=== PATIENT | female | born 1950 | race Caucasian/White ===

== ENCOUNTER 2017-05-31 11:04 | Outpatient (CLI) | payer OTHER ==
[~2017-05-31 11:04] MED LIST: COREG CR20 MG PO; [UNRECOGNIZED DRUG - OTHER] PO
== END 2017-05-31 11:06 | disposition home or self-care (01) ==
LOC: NUCLEAR 11:04
DX: E21.5 Disorder of parathyroid gland, unspecified (principal)
CPT/HCPCS: 78070; A9500

== ENCOUNTER 2017-06-06 09:20 | Outpatient (CLI) | payer OTHER ==
[2017-06-18] MEDS ORDERED: CARAFATE1 GM PO (13:00)
[2017-06-18] MEDS ORDERED: LISINOPRIL5 MG PO (13:00)
[2017-06-18] MEDS ORDERED: PROTONIX20 MG PO (13:00)
[2017-06-18] MEDS ORDERED: ZANTAC300 MG PO (13:01)
== END 2017-06-06 09:26 | disposition home or self-care (01) ==
LOC: MAMO-SONO 09:20 → SONOGRAMA 09:20
DX: D35.1 Benign neoplasm of parathyroid gland (principal)

== ENCOUNTER 2017-06-21 06:00 | Day surgery (SDC) | payer OTHER ==
[~2017-06-21] VITALS: Ht 154.9 cm; Wt 67.1 kg
[~2017-06-21 06:00] MED LIST changes: +CARAFATE1 GM PO; +LISINOPRIL5 MG PO; +PROTONIX20 MG PO; +ZANTAC300 MG PO
== END 2017-06-22 06:46 | disposition home or self-care (01) ==
LOC: CIR.AMB 06:00 → SURG 07:00 → EDSTATUS 09:30 → SURG 09:30 → RECOVERY 09:30 → SURH 10:37 → O/R 10:37 → CIR.AMB 06-22 06:46 → O/R 06-22 13:52 → SURH 06-22 13:52
DX: D35.1 Benign neoplasm of parathyroid gland (principal)

== ENCOUNTER 2017-06-27 06:58 | Outpatient (CLI) | payer OTHER | END 2017-06-27 07:17 | disposition home or self-care (01) | LOC: LAB 06:58 | DX: D35.1 Benign neoplasm of parathyroid gland (principal) ==

== ENCOUNTER 2017-07-25 10:28 | Outpatient (CLI) | payer OTHER | END 2017-07-25 17:00 | disposition home or self-care (01) | LOC: SONOGRAMA 10:28 | DX: R10.9 Unspecified abdominal pain (principal) ==

== ENCOUNTER 2017-08-02 08:46 | Outpatient (CLI) | payer OTHER | END 2017-08-02 09:08 | disposition home or self-care (01) | LOC: RAD 501 08:46 | DX: R10.84 Generalized abdominal pain (principal) ==

== ENCOUNTER 2018-01-14 08:39 | Outpatient (CLI) | payer OTHER ==
[~2018-01-14] VITALS: Ht 154.9 cm; Wt 69.4 kg
== END 2018-01-14 09:00 | disposition home or self-care (01) ==
LOC: OFIC 805 08:39
DX: J32.8 Other chronic sinusitis (principal); J30.89 Other allergic rhinitis; H93.11 Tinnitus, right ear; R42 Dizziness and giddiness

== ENCOUNTER 2018-01-14 10:28 | Outpatient (CLI) | payer OTHER | END 2018-01-14 10:39 | disposition home or self-care (01) | LOC: TOM 10:28 | DX: J32.8 Other chronic sinusitis (principal) ==

== ENCOUNTER 2018-11-28 10:31 | Outpatient (CLI) | payer OTHER | END 2018-11-28 10:38 | disposition home or self-care (01) | LOC: RAD 10:31 | DX: M54.2 Cervicalgia (principal) ==

== ENCOUNTER 2019-02-07 07:34 | Outpatient (CLI) | payer OTHER | END 2019-02-07 07:54 | disposition home or self-care (01) | LOC: TOM 07:34 | DX: M54.11 Radiculopathy, occipito-atlanto-axial region (principal); N63.11 Unspecified lump in the right breast, upper outer quadrant; M50.00 Cervical disc disorder with myelopathy, unspecified cervical region; Z12.31 Encounter for screening mammogram for malignant neoplasm of breast ==

== ENCOUNTER → 2019-02-11 | Outpatient (CLI) | payer OTHER | END | disposition home or self-care (01) | LOC: NUCLEAR 10:11 | DX: M81.0 Age-related osteoporosis without current pathological fracture (principal) ==

== ENCOUNTER 2019-05-09 06:40 | Outpatient (CLI) | payer OTHER | END 2019-05-09 06:49 | disposition home or self-care (01) | LOC: LAB 06:40 | DX: E78.2 Mixed hyperlipidemia (principal); D68.8 Other specified coagulation defects; I10 Essential (primary) hypertension; Z01.810 Encounter for preprocedural cardiovascular examination; Z01.811 Encounter for preprocedural respiratory examination ==

== ENCOUNTER 2019-08-25 07:17 | Outpatient (CLI) | payer OTHER | END 2019-08-25 07:39 | disposition home or self-care (01) | LOC: TOM 07:17 | DX: K57.30 Diverticulosis of large intestine without perforation or abscess without bleeding (principal); K21.9 Gastro-esophageal reflux disease without esophagitis; K59.09 Other constipation ==

== ENCOUNTER → 2019-09-10 06:20 | Outpatient (CLI) | payer OTHER | END | disposition home or self-care (01) | LOC: LAB 06:20 | DX: E11.9 Type 2 diabetes mellitus without complications (principal); E78.00 Pure hypercholesterolemia, unspecified ==

== ENCOUNTER → 2019-09-24 06:24 | Outpatient (CLI) | payer OTHER | END | disposition home or self-care (01) | LOC: LAB 06:24 | PROVIDERS: ATTEND Internal Medicine Cardiovascular Disease | DX: I10 Essential (primary) hypertension (principal); E11.9 Type 2 diabetes mellitus without complications; E03.8 Other specified hypothyroidism; E78.2 Mixed hyperlipidemia; Z12.11 Encounter for screening for malignant neoplasm of colon ==

== ENCOUNTER 2019-12-24 07:08 | Outpatient (CLI) | payer OTHER | END 2019-12-24 07:14 | disposition home or self-care (01) | LOC: RAD 07:08 | DX: M16.0 Bilateral primary osteoarthritis of hip (principal) ==

== ENCOUNTER 2020-03-16 08:21 | Outpatient (CLI) | payer OTHER | END 2020-03-16 08:33 | disposition home or self-care (01) | LOC: RAD 08:21 → MAMO-SONO 09:45 | PROVIDERS: ATTEND Obstetrics & Gynecology | DX: M43.12 Spondylolisthesis, cervical region (principal); M43.8X7 Other specified deforming dorsopathies, lumbosacral region; M54.12 Radiculopathy, cervical region; Z12.31 Encounter for screening mammogram for malignant neoplasm of breast; N64.59 Other signs and symptoms in breast; N64.4 Mastodynia; M54.2 Cervicalgia; M54.5 Low back pain ==

== ENCOUNTER 2020-08-04 11:58 | Emergency (ER) | payer OTHER ==
[~2020-08-04] VITALS: Ht 154.9 cm; Wt 73.0 kg
[2020-08-04] MEDS ORDERED: DAFLONEX-XL 11300 MG (12:16)
[2020-08-04] MEDS ORDERED: LIPITOR20 MG (12:16)
[2020-08-04] MEDS ORDERED: FUROSEMIDE20 MG (12:16)
[2020-08-04] MEDS ORDERED: CARVEDILOL12.5 MG (12:17)
[2020-08-04] MEDS ORDERED: ADULT LOW DOSE81 M1 (12:17)
[2020-08-04] MEDS ORDERED: CARAFATE1 GM (12:17)
[2020-08-04] MEDS ORDERED: PROTONIX20 MG (12:18)
[2020-08-04] MEDS ORDERED: ALENDRONATE SOD70 MG (12:18)
[2020-08-04] MEDS ORDERED: ZESTRIL2.5 MG (12:20)
[2020-08-04] MEDS ORDERED: KETO10TA2 PO (17:49)
[2020-08-04] MEDS ORDERED: ORPHENADRINE C100 MG PO (17:49)
[2020-08-04] MEDS ORDERED: MEDROLPACK PO (17:49)
== END 2020-08-04 18:14 | disposition home or self-care (01) ==
LOC: ER 11:58
DX: M51.37 Other intervertebral disc degeneration, lumbosacral region (principal); I87.2 Venous insufficiency (chronic) (peripheral); M54.5 Low back pain; M79.604 Pain in right leg

== ENCOUNTER 2020-08-13 12:21 | Outpatient (CLI) | payer OTHER ==
[~2020-08-13 12:21] MED LIST changes: +ADULT LOW DOSE81 M1; +ALENDRONATE SOD70 MG; +CARAFATE1 GM; +CARVEDILOL12.5 MG; +DAFLONEX-XL 11300 MG; +FUROSEMIDE20 MG; +KETO10TA2 PO; +LIPITOR20 MG; +MEDROLPACK PO; +ORPHENADRINE C100 MG PO; +PROTONIX20 MG; +ZESTRIL2.5 MG
== END 2020-08-13 14:22 | disposition home or self-care (01) ==
LOC: MRI 12:21
PROVIDERS: ATTEND Internal Medicine Cardiovascular Disease
DX: M46.47 Discitis, unspecified, lumbosacral region (principal)
CPT/HCPCS: 72148

== ENCOUNTER 2020-08-19 10:32 | Emergency (ER) | payer OTHER ==
[~2020-08-19] VITALS: Ht 154.9 cm; Wt 72.1 kg
[2020-08-19] MEDS ORDERED: ULTRAM50 MG PO (14:18)
[2020-08-19] MEDS ORDERED: CELEBREX200MG PO (14:18)
[2020-08-19] MEDS ORDERED: MEDROLPACK PO (14:18)
== END 2020-08-19 14:42 | disposition home or self-care (01) ==
LOC: ER 10:32
DX: M51.16 Intervertebral disc disorders with radiculopathy, lumbar region (principal)

== ENCOUNTER → 2020-08-30 15:07 | Outpatient (CLI) | payer OTHER ==
[~2020-08-30 15:07] MED LIST changes: +CELEBREX200MG PO; +ULTRAM50 MG PO
== END | disposition home or self-care (01) ==
LOC: LAB 15:07
PROVIDERS: ATTEND Radiology Diagnostic Radiology
DX: M48.062 Spinal stenosis, lumbar region with neurogenic claudication (principal)

== ENCOUNTER → 2020-09-14 08:08 | Outpatient (CLI) | payer OTHER | END | disposition home or self-care (01) | LOC: LAB 08:08 | PROVIDERS: ATTEND Internal Medicine Cardiovascular Disease | DX: E78.2 Mixed hyperlipidemia (principal); I10 Essential (primary) hypertension; E11.9 Type 2 diabetes mellitus without complications; E03.9 Hypothyroidism, unspecified ==

== ENCOUNTER → 2020-09-15 | Outpatient (CLI) | payer OTHER | END | disposition home or self-care (01) | LOC: MRI 07:13 | PROVIDERS: ATTEND Neurological Surgery | DX: M48.062 Spinal stenosis, lumbar region with neurogenic claudication (principal); D33.4 Benign neoplasm of spinal cord | CPT/HCPCS: 72158; A9575 ==

== ENCOUNTER 2020-10-11 06:23 | Emergency (ER) | payer OTHER ==
[~2020-10-11] VITALS: Ht 154.9 cm; Wt 74.8 kg
[2020-10-11] MEDS ORDERED: MEDROLPACK PO (08:45)
== END 2020-10-11 08:56 | disposition home or self-care (01) ==
LOC: ER 06:23
DX: K05.10 Chronic gingivitis, plaque induced (principal)

== ENCOUNTER 2020-10-26 12:07 | Outpatient (CLI) | payer OTHER | END 2020-10-26 12:10 | disposition home or self-care (01) | LOC: RAD 12:07 | PROVIDERS: ATTEND Internal Medicine Cardiovascular Disease | DX: I10 Essential (primary) hypertension (principal); J44.9 Chronic obstructive pulmonary disease, unspecified ==

== ENCOUNTER 2020-11-15 12:58 | Outpatient (CLI) | payer OTHER | END 2020-11-15 13:06 | disposition home or self-care (01) | LOC: RAD 12:58 | PROVIDERS: ATTEND Physical Medicine & Rehabilitation | DX: M54.2 Cervicalgia (principal) ==

== ENCOUNTER 2020-11-28 08:12 | Emergency (ER) | payer OTHER ==
[~2020-11-28] VITALS: Ht 154.9 cm; Wt 70.3 kg
== END 2020-11-28 09:19 | disposition home or self-care (01) ==
LOC: ER 08:12
DX: K04.7 Periapical abscess without sinus (principal)

== ENCOUNTER 2021-01-13 07:39 | Outpatient (CLI) | payer OTHER | END 2021-01-13 07:43 | disposition home or self-care (01) | LOC: MAMO-SONO 07:39 | PROVIDERS: ATTEND Obstetrics & Gynecology | DX: M25.511 Pain in right shoulder (principal); N60.11 Diffuse cystic mastopathy of right breast; N60.12 Diffuse cystic mastopathy of left breast; Z12.31 Encounter for screening mammogram for malignant neoplasm of breast ==

== ENCOUNTER 2021-06-28 08:34 | Outpatient (CLI) | payer OTHER | END 2021-06-28 08:35 | disposition home or self-care (01) | LOC: RAD 08:34 | PROVIDERS: ATTEND Internal Medicine Cardiovascular Disease | DX: M12.9 Arthropathy, unspecified (principal) ==

== ENCOUNTER 2021-09-19 14:15 | Outpatient (CLI) | payer OTHER | END 2021-09-19 14:25 | disposition home or self-care (01) | LOC: PPH VACUNA 14:15 | PROVIDERS: ATTEND Emergency Medicine Pediatric Emergency Medicine | DX: Z23 Encounter for immunization (principal) ==

== ENCOUNTER 2022-01-07 07:19 | Emergency (ER) | payer OTHER ==
[~2022-01-07] VITALS: Ht 154.9 cm; Wt 69.9 kg
[2022-01-07] MEDS ORDERED: XARELTO2.5 MG PO (07:38)
[2022-01-07] MEDS ORDERED: FUROSEMIDE20 MG PO (07:39)
== END 2022-01-07 11:26 | disposition home or self-care (01) ==
LOC: ER 07:19
DX: U07.1 COVID-19 (principal); Z91.041 Radiographic dye allergy status

== ENCOUNTER 2022-01-13 12:50 | Outpatient (CLI) | payer OTHER ==
[~2022-01-13 12:50] MED LIST changes: +FUROSEMIDE20 MG PO; +XARELTO2.5 MG PO
== END 2022-01-13 12:59 | disposition home or self-care (01) ==
LOC: RAD 12:50
PROVIDERS: ATTEND Internal Medicine Rheumatology
DX: M19.079 Primary osteoarthritis, unspecified ankle and foot (principal)

== ENCOUNTER 2022-05-26 07:18 | Outpatient (CLI) | payer OTHER ==
[~2022-05-26 07:18] MED LIST changes: +DOLOGEN CAPLET1 EACH PO; +ZYRTEC10 MG PO
== END 2022-05-26 08:00 | disposition home or self-care (01) ==
LOC: MRI 07:18
PROVIDERS: ATTEND Internal Medicine Cardiovascular Disease
DX: M46.48 Discitis, unspecified, sacral and sacrococcygeal region (principal); N60.11 Diffuse cystic mastopathy of right breast; N60.12 Diffuse cystic mastopathy of left breast
CPT/HCPCS: 72148

== ENCOUNTER → 2022-06-19 | Outpatient (CLI) | payer OTHER | END | disposition home or self-care (01) | LOC: TOM 11:14 | PROVIDERS: ATTEND Internal Medicine Cardiovascular Disease | DX: N13.0 Hydronephrosis with ureteropelvic junction obstruction (principal); J32.8 Other chronic sinusitis ==

== ENCOUNTER 2022-06-30 12:55 | Outpatient (CLI) | payer OTHER | END 2022-06-30 12:59 | disposition home or self-care (01) | LOC: NUCLEAR 12:55 | PROVIDERS: ATTEND Obstetrics & Gynecology | DX: M81.0 Age-related osteoporosis without current pathological fracture (principal) ==

== ENCOUNTER → 2025-01-01 09:39 | Outpatient (CLI) | payer OTHER ==
[2025-01-01 10:14] LABS: BASO % 0.5 % (0.1-1.2); EOS # 0.26 (0.04-0.54); EOS % 4.5 % (0.7-7.0); LYMPH # 1.76 (1.18-3.74); LYMPH % 30.1 % (19.3-53.1); MEAN PLATELET VOLUME 9.40 fl (9.4-12.4); MONO # 0.52 (0.24-0.82); MONO % 8.9 % (4.7-12.5); NEUT # 3.26 (1.56-6.13); NEUT % 55.8 % (34.0-71.1); RED CELL DISTRIBUTION WIDTH 13.7 % (11.6-14.4)
[2025-01-01 10:43] LABS: URINE APPEARANCE Turbid; URINE BILIRRUBIN Small (NEGATIVE); URINE BLOOD Large; URINE COLOR Dark Yellow; URINE GLUCOSE Negative (NEGATIVE); URINE KETONE Trace (NEGATIVE); URINE LEUKOCYTE Large; URINE NITRATE Negative; URINE PROTEIN 30 (NEGATIVE); URINE UROBILINOGEN 1.0 E.U./dl
[2025-01-01 10:48] LABS: URINE BACTERIA 7303.2 uL (0.0-1933); URINE CAST 1.46 uL (0.0-1.40); URINE EPITHELIAL CELLS 88.6 uL (0.0-38.8); URINE RBC 292.1 uL (0.0-20.8); URINE WBC 474.4 uL (0.0-23.2)
[2025-01-01 11:18] LABS: URINE MUCUS MODERATE
[2025-01-01 11:20] LABS: URINE TRICHOMONAS FEW
[2025-01-01 11:58] LABS: ALT/SGPT 33.0 U/L (12-78); AST/SGOT 22.0 U/L (15-37); BILIRUBIN TOTAL 0.52 mg/dL (0.3-1.2); BUN CREA RATIO 20.0 (7.0-25.0); CHOL HDL RATIO 2.0 (0-5.0); CREATININE SERUM 0.66 mg/dL (0.55-1.02); GFR 88.03; GLOBULINA 3.5 G/DL (2.4-3.5); GLUCOSE FASTING 93.0 mg/dL (65-100); HDL 64.0 mg/dl (40-60); LDL 48.0 mg/dl (0-130); OSMOLALITY SERUM 285.0 MOSM/KG (275-295); T4 TOTAL 7.75 UG/DL (4.8-13.9); TSH 0.691 uIU/mL (0.358-3.74); VLDL 14.0 (0-39)
[2025-01-01 12:15] LABS: T3 TOTAL 1.02 ng/ml (0.846-2.02); VITAMIN D3 25 HYDROXY 44.13 ng/ml (30-120)
[2025-01-02 11:04] LABS: ob NEGATIVE (NEGATIVE)
== END | disposition home or self-care (01) ==
LOC: LAB 09:39
PROVIDERS: ATTEND Internal Medicine Cardiovascular Disease
DX: I10 Essential (primary) hypertension (principal); E03.9 Hypothyroidism, unspecified; E78.2 Mixed hyperlipidemia; D64.0 Hereditary sideroblastic anemia; Z12.11 Encounter for screening for malignant neoplasm of colon; E55.9 Vitamin D deficiency, unspecified; M81.0 Age-related osteoporosis without current pathological fracture; R73.03 Prediabetes

== ENCOUNTER 2025-01-01 10:53 | Outpatient (CLI) | payer OTHER | END 2025-01-01 10:57 | disposition home or self-care (01) | LOC: MAMO-SONO 10:53 | PROVIDERS: ATTEND Internal Medicine Cardiovascular Disease | DX: N60.11 Diffuse cystic mastopathy of right breast (principal); N60.12 Diffuse cystic mastopathy of left breast; Z12.31 Encounter for screening mammogram for malignant neoplasm of breast ==

== ENCOUNTER 2025-01-02 13:00 | Outpatient (CLI) | payer OTHER | END 2025-01-02 13:05 | disposition home or self-care (01) | LOC: MRI 13:00 | PROVIDERS: ATTEND Internal Medicine Cardiovascular Disease | DX: M46.47 Discitis, unspecified, lumbosacral region (principal) | CPT/HCPCS: 72148 ==